=== PATIENT | female | born 1965 | race Caucasian/White ===

== ENCOUNTER → 2024-01-10 14:13 | Outpatient (REF) | payer OTHER, SELFPAY | LOC: RAD 14:13 | PROVIDERS: ATTENDING PHYSICIAN Family Medicine | DX: R10.9 Unspecified abdominal pain (principal) | CPT/HCPCS: 76700 ==

== ENCOUNTER 2024-01-10 21:28 | Inpatient (IN) | payer OTHER, SELFPAY ==
[2024-01-10] VITALS (7 sets, daily range): BP systolic 130–139; BP diastolic 72–86; BMI 19.3
--- NOTE | 2024-01-10 17:00 | ED.PDOC.TRB ---
ED Provider Triage
-
Patient seen by provider in Triage?: Seen in Triage
58 year old female with intermittent epigastric and RUQ pain. Was sent over by PMD from outpatient radiology. US shows gallstones with dilated CBD. Labs ordered. May require further work up. Declined meds for pain/nausea.
[2024-01-10 17:36] LABS: % Basophils 1.4 % (0-2); % Eosinophils 10.7 % (0-6); % Immature Granulocytes 0.1 % (0-0.5); % Lymphocytes 34.2 % (20.5-51.1); % Monocytes 6.4 % (1.7-9.3); % Neutrophils 47.2 % (42.2-75.2); Absolute Basophils 0.1 10^3/uL (0-0.2); Absolute Eosinophils 0.9 10^3/uL (0-0.7); Absolute Lymphocytes 2.7 10^3/uL (1.2-3.4); Absolute Monocytes 0.5 10^3/uL (0.1-0.6); Absolute Neutrophils 3.8 10^3/uL (1.4-6.5); Hematocrit 42.9 % (37.0-47.0); Hemoglobin 14.3 g/dL (12.0-16.0); Mean Corp Hgb Conc. 33.3 g/dL (33.0-37.0); Mean Corpuscular Hgb 32.1 pg (27.0-31.0); Mean Corpuscular Volume 96.4 fL (81.0-99.0); Mean Platelet Volume 9.9 fL (7.4-10.4); Nucleated Red Blood Cells % 0 %; Platelet Count 309 10^3/uL (130-400); Red Blood Cell Count 4.45 10^6/uL (4.20-5.40); Red Cell Dist. Width 12.3 % (11.5-14.5)
[2024-01-10 18:10] LABS: ALT (SGPT) 1315 U/L (0-35); AST (SGOT) 665 U/L (14-36); Albumin 3.1 g/dl (3.5-5.0); Alkaline Phosphatase 376 U/L (38-126); Blood Urea Nitrogen 16 mg/dl (7-17); Calcium 10.1 mg/dl (8.4-10.2); Carbon Dioxide 26 mmol/L (22-30); Chloride 105 mmol/L (98-107); Glucose 95 mg/dl (70-99); Lipase 192 U/L (23-300); Potassium 3.8 mmol/L (3.5-5.1); Sodium 138 mmol/L (135-145); Total Protein 7.5 g/dl (6.3-8.2); eGFR > 60.00
[2024-01-10] MEDS: NSS 1000 IV (19:05)
--- NOTE | 2024-01-10 19:40 | ED.GENMED ---
History of Present Illness
General
Chief Complaint: Abdominal Pain
Source: patient
Exam Limitations: none
Time Seen by Provider: 01/10/24 18:45
Nursing documentation reviewed up to this point in time: agreed with
History of Present Illness
History of Present Illness:
58-year-old female presenting to the emergency department today with concerns of right upper quadrant pain starting yesterday. Was found on an outpatient ultrasound to have stones in the common bile duct. Has elevated liver function test as well
as alk phos. Has had some nausea. Denies any chest pain shortness of breath or fevers. No jaundice.
Review of Systems
Review of Systems
Allergies reviewed?: Yes
All Other Systems: ROS reviewed and negative except as documented in HPI and ROS
Phy Exam
Physical Exam
Physical Exam:
GENERAL: Alert , in no apparent distress
EYE: pupils equal and reactive
NECK: Supple, no significant adenopathy.
ENT: o/p clr, mmm.
CARDIAC: Regular rate and rhythm .
LUNGS: Clear breath sounds bilaterally, no acute respiratory distress, no wheezes/rales/rhonchi
ABDOMEN: Soft, without focal tenderness, no r/g, no cvat
NEUROLOGICAL: Alert and oriented, no focal neuro deficits
SKIN: Warm and dry, skin intact.
MUSCULOSKELETAL: No edema, well perfused.
PSYCH: Normal and appropriate interaction.
Course
Orders/Labs/Results
Orders:
Orders
01/10/24 17:02
IV Insert/Care/Rem.- Treatment PRN
01/10/24 17:24
Complete Blood Count/With Diff Urgent
Comprehensive Metabolic Panel Urgent
Lipase Urgent
01/10/24 18:55
0.9% Sodium Chloride 1000 ml [Nss] 1,000 ml IV BOLUS
Abnormal Lab Results
01/10/24
17:24
MCH 32.1 H pg
(27.0-31.0)
Absolute Eos (auto) 0.9 H 10^3/uL
(0-0.7)
Eosinophils % 10.7 H %
(0-6)
AST 665 H* U/L
(14-36)
ALT 1315 H* U/L
(0-35)
Alkaline Phosphatase 376 H U/L
(38-126)
Albumin 3.1 L g/dl
(3.5-5.0)
01/10/24 17:24
01/10/24 17:24
Vital Signs
Initial and Last Documented VS:
Initial Vital Signs
Temp Pulse Resp BP Pulse Ox
98.3 F 106 20 134/84 96
01/10/24 16:58 01/10/24 16:58 01/10/24 16:58 01/10/24 16:58 01/10/24 16:58
Last Documented Vital Signs
Temp Pulse Resp BP Pulse Ox
98.1 F 73 20 130/86 96
01/10/24 19:09 01/10/24 19:09 01/10/24 19:09 01/10/24 19:09 01/10/24 19:09
MDM/Problems Addressed
MDM/Problems Addressed:
58-year-old female presenting to the emergency department today with concerns of right upper quadrant abdominal pain starting yesterday. Has had some degree of intermittent pain over the past few weeks. Upon arrival tachycardic but otherwise
improving without specific treatment here. Labs showing significant elevation of liver function test as well as alk phos. Case discussed with GI will be admitted for further treatment and monitoring.
*Critical Care Note
Total Time (30-74mins, 75-104mins- exclusive of procedures): Not Applicable
ED Attending Note
-
Portions of this chart may have been created with voice recognition software.� Occasional wrong word or��sound alike� substitutions may have occurred due to the inherent limitations of voice recognition software.
Discharge Plan
Departure
Patient Disposition: Admit
Date of Disposition: 01/10/24
Time of Disposition: 19:41
Admit to: Med/Surg
Admit to doctor: Alexis
Presentation/result/management discussed w/ accepting MD/DO: Hospitalist
Patient with high blood pressure during this ER visit?: No
Condition: Good
Covid-19: Not Applicable
Discharge Problem:
Choledocholithiasis
Prescriptions:
No Action
clotrimazole 10 mg Bishop
10 mg MUCOUS MEMBRANE .5X DAILY
Patient Comments:
01/10/24: filled 12/27/23, to take for 14 days, patient states she finishes on Wednesday
cetirizine [Zyrtec] 10 mg Tablet
10 mg PO HS
sertraline 100 mg Tablet
100 mg PO HS
Theragen Tablet
1 tab PO DAILY
trazodone 100 mg Tablet
100 mg PO HS
fluticasone propionate [Flonase] 50 mcg/actuation [place],Suspension
1 spray INTRANASAL DAILY
rosuvastatin 5 mg Tablet
5 mg PO DAILY
bupropion HCl 300 mg Tablet Extended Release 24 Hr
300 mg PO DAILY
magnesium glycinate 100 mg magnesium Capsule
400 mg PO HS
famotidine 20 mg Tablet
20 mg PO HS
Referrals:
Devorah Julien DO [Family Provider] -
Interventions
Interventions:
*Risk Screen - Suicide Last Done: 01/10/24 16:58
*General Assessment Last Done: 01/10/24 16:58
*Neglect/Abuse Screening Last Done: 01/10/24 16:58
Discharge Date and Time
Print Language: IRISH
--- NOTE | 2024-01-10 21:09 | HPS.HSE ---
Family Physician
-
Family Physician: Devorah Julien
Chief Complaint
-
Abd Pain
History of Present Illness
Patient is a 58y F with PMH significant for anxiety / depression and allergies who presents to ED complaining of abdominal pain. Patient states that she had her initial episode of epigastric abdominal pain on 12/02 in the evening. Pain was quite
severe at that time with radiation into the bilateral flanks. She had N/V x 1 with that episode. Her symptoms improved after 1+ hour. Patient states that she has had 3 additional episodes since that time. She is not certain whether they are all
related to food intake; however, today she ate eggs and richardson for breakfast (which is unusual for her) and her symptoms started about 2 hours later.
With this most recent episode, the patient spoke with her PCP and had an outpatient US done. This showed gallstones and dilated CBD suspicious for distal stone and patient was advised to present to the ED for further evaluation.
Patient states that she changed her diet in July of this year. She has been avoiding carbs, sugars, etc and has lost 30 lbs in that time. This is admittedly more weight than she was trying to lose.
Patient has been having various symptoms since October of this year. She initially had dry mouth and has been treated for presumed candidiasis twice. She is currently on a 10 day course of clotrimazole troches.
Patient was evaluated by her PCP and noted to have significant elevation in RF and CCP.
She states that she has since been seen by a Learning Analyst and additional evaluations have federico unremarkable.
She was also noted to have an IgA level that was undetectable.
Patient was maintained on Xolair for the past 6 years for treatment of IgE-mediated allergies.
She was taken off of this medication in July of this year.
Medical History
Past Medical History
Past Medical History: Reports Other
Additional Past Medical History:
Anxiety / Depression
IgE-Mediated Environmental Allergies
Chronic Sinusitis
Dyslipidemia
Past Surgical History: Reports Other
Additional Past Surgical History:
Sinus Surgery
Social History
Tobacco: Non-smoker
Alcohol: Occasional
Drug: None
Personal:
Living: With Family
Family History
Family History: Not pertinent
Allergies / Home Medications
Allergies reflects when Allergies were last updated in [facility].
Home Medications with original date entered in [facility]
Allergy/Medication List:
Allergies
Allergy/AdvReac Type Severity Reaction Status Date / Time
No Known Allergies Allergy Unverified 01/10/24 16:58
Home Medications
bupropion HCl 300 mg 24 hr tablet, extended release 300 mg PO DAILY 01/10/24
cetirizine 10 mg tablet (Zyrtec) 10 mg PO HS 01/10/24
clotrimazole 10 mg christiana 10 mg mucous membrane .5X DAILY 01/10/24
famotidine 20 mg tablet 20 mg PO HS 01/10/24
fluticasone propionate 50 mcg/actuation nasal spray,suspension 1 spray intranasal DAILY 01/10/24
magnesium glycinate 400 mg PO HS 01/10/24
rosuvastatin 5 mg tablet 5 mg PO DAILY 01/10/24
sertraline 100 mg tablet 100 mg PO HS 01/10/24
therapeutic multivitamin 1 tab PO DAILY 01/10/24
trazodone 100 mg tablet 100 mg PO HS 01/10/24
Review of Systems
-
History Source: Patient
A 12 point ROS was completed and negative except as noted: Yes
Constitutional: Reports Weight Loss and Fatigue; Denies Fever or Chills
EENT: Reports Other (Dry Mouth, Tongue coating.)
Respiratory: Denies Cough or Trouble Breathing
Cardiac: Denies Chest Pain or Palpitations
Abdomen/GI: Reports Abdominal Pain, Nausea and Diarrhea (yellow stool.); Denies Vomiting or Anorexia
: Reports Flank Pain and Other (Dark urine.); Denies Dysuria or Frequency
Musculoskeletal: Denies Joint Pain or Edema
Neurological: Denies Dizzy or Headache
Psych: Denies Depression or Anxiety
Physical Exam
Vital Signs
Vital Signs
Temp Pulse Resp BP Pulse Ox
98.1 F 68 18 134/80 97
01/10/24 19:09 01/10/24 21:00 01/10/24 21:00 01/10/24 21:00 01/10/24 21:00
Physical Exam
General: Other (58y F in no acute distress.)
HEENT: Other (Dry MM. Whitish coating on the tongue. No ulcers / lesions.)
Respiratory: Clear; No Wheezes, Rales or Rhonchi
Cardiac: S1/S2 and Regular Rhythm; No Murmur
GI: Soft, Non Distended, Normal Bowel Sounds and Other (Mild RUQ tenderness. No rebound / guarding.)
Musculoskeletal: No Clubbing, No Cyanosis and No Edema
Neuro: AO x 3
Laboratory Results
-
01/10/24 17:24
01/10/24 17:24
Laboratory Results
Total Bilirubin 1.0 mg/dl (0.2-1.3) 01/10/24 17:24
AST 665 U/L (14-36) H* 01/10/24 17:24
ALT 1315 U/L (0-35) H* 01/10/24 17:24
Alkaline Phosphatase 376 U/L (38-126) H 01/10/24 17:24
Lipase 192 U/L (23-300) 01/10/24 17:24
Impression/Plan
-
A/P: Patient is a 58y F with PMH significant for anxiety / depression and chronic sinusitis who presents to ED complaining of abdominal pain.
Abdominal Pain
Hepatitis
Cholelithiasis +/- Choledocholithiasis
- Admit for further evaluation and treatment.
- LFTs with elevated transaminases (ALT > AST) and alk phos. Normal bili.
- US done as an outpatient with multiple gallstones. No wall thickening / fluid. Dilated CBD suggestive of possible distal obstruction.
- Currently symptom free in the ED. 4 episodes of pain in the past month.
- NPO after midnight.
- IVF support, pain control / antiemetics if needed.
- GI evaluation for probable ERCP in the AM.
- Given other recent issues / complaints / lab abnormalities - will add testing for AHI as well.
Oral Candidiasis
- Will hold on further clotrimazole for now given LFT abnormalities.
- Follow for any new / worsening symptoms and consider alternate therapy if needed.
Anxiety / Depression
- Stable. Continue sertraline, trazodone, etc.
RF Positive
Weight Loss
- Patient with outpatient labs including positive RF, CCP and undetectable IgA.
- Work to include testing for autoimmune hepatitis as noted above.
- Follow-up with PCP / Rheum as an outpatient.
DVT Prophylaxis: SCDs
Code Status: Full
[2024-01-10] MEDS: LR 1000 IV (22:45)
[2024-01-10] MEDS: ZOLOFT 100 MG PO (22:46)
[2024-01-10] MEDS: DESYREL 100 MG PO (22:46)
[2024-01-10] MEDS: PEPCID 20 MG PO (22:46)
--- NOTE | 2024-01-10 22:50 | PTCARENOTE ---
Received patient from ED via stretcher. Patient ambulated from stretcher to bed independently. AAOx3, no current complaints of pain. Oriented patient to room and placed call malcolm within reach.
[2024-01-11 06:57] LABS: Hematocrit 36.7 % (37.0-47.0); Hemoglobin 12.5 g/dL (12.0-16.0); Mean Corp Hgb Conc. 34.1 g/dL (33.0-37.0); Mean Corpuscular Hgb 32.1 pg (27.0-31.0); Mean Corpuscular Volume 94.1 fL (81.0-99.0); Mean Platelet Volume 10.4 fL (7.4-10.4); Platelet Count 266 10^3/uL (130-400); Red Cell Dist. Width 12.5 % (11.5-14.5)
--- NOTE | 2024-01-11 07:30 | CON.GI ---
Addendum entered and electronically signed by Amaya Mi MD 01/11/24 08:59:
I saw and examined the patient.
The SHED WORKERS SUPERVISOR's note was reviewed and I agree with the note.
Comment: This is a very pleasant 58-year-old female with past medical history as listed below who presented with epigastric pain radiating to the back she has had intermittent episodes since November but worsening symptoms since this past weekend after
eating richardson and eggs. On admission she was noted to have gallstones and possible CBD stone with abnormal LFTs. She states her pain though has significantly improved today. No fevers or chills. She has had a 30 pound intentional weight loss and
for her daughter's wedding coming up in 2 weeks.
Assessment and plan cholelithiasis with possible choledocholithiasis and abnormal LFTs. Her pain has improved today she may have passed a stone will get an MRCP today and if she still has a retained stone then will schedule for ERCP and if she
passed a stone she will need cholecystectomy timing per surgery. Okay to start clear liquids after her MRCP and trend labs. will also get Acute viral hepatitis serologies.
Addendum entered and electronically signed by CYNDIE Gleason 01/11/24 08:25:
Pt also with hx recent candidiasis x2 and noted elevated RF and CCP with rheumatology evaluation with hx Xolair therapy for IGE mediated allergies stopped several months ago. GLO, AMA, ASMA added per hospitalist team.
Original Note:
Consultation
-
Date/Time Consultation Requested: 01/10/240
Date/Time Consultation Performed: 01/10/14 0730
Requesting Provider: Shashi Espinoza DO
Performing Provider: CYNDIE Manzano, Amaya Mi MD
Reason for Consultation: abdominal pain
Medical History
Chief Complaint / HPI
Chief Complaint: abdominal pain
History of Present Illness:
Pt is a 58yo presents with hx anxiety/depression, elevated cholesterol, allergies and prior sinus surgery with onset of recurrent episodes of abdominal pain with recent intentional wt loss prior to family wedding. Episodes started in November with
worst episode this weekend after eating richardson and eggs and the beach. Symptoms had some improvement but pt was concerned for recurrent process. On admission she is noted bili 1, AST 665, ALT 1315 and alk phos 376. US notable for cholelithiasis
with many stones in GB lumen, and moderate distention suspicious for distal CBD obstruction.
Pt admits to some vomiting with first episode and change in stool color with some diarrhea and constipation with yellow stools and dark urine. + wt loss 30 lb prior to admission. Pain was epigastric and between breast. Worse after eating better
with fasting. She denies dysphagia, GERD, or rectal bleeding. No prior EGD but hx colon with polyps 3 years ago.
Past Medical History
Past Medical History: Hypercholesterolemia, Psychiatric (anxiety/depression) and Other (IgE- mediated environmental allergies, chronic sinusitis, colon polyps)
Past Surgical History: Other (sinus surgery )
Social History
Tobacco: Non-Smoker
Alcohol: Occasional
Drug: None
Personal:
Living: With Family
Employment: Employed
Family History
Family History: Reviewed & Not Pertinent
Allergies / Home Medications
Allergy/AdvReac Type Severity Reaction Status Date / Time
No Known Allergies Allergy Unverified 01/10/24 16:58
�Medication �Instructions �Recorded
bupropion HCl 300 mg 24 hr tablet, 300 mg PO DAILY 01/10/24
extended release
cetirizine 10 mg tablet (Zyrtec) 10 mg PO HS 01/10/24
clotrimazole 10 mg christiana 10 mg mucous membrane .5X DAILY 01/10/24
famotidine 20 mg tablet 20 mg PO HS 01/10/24
fluticasone propionate 50 1 spray intranasal DAILY 01/10/24
mcg/actuation nasal
spray,suspension
magnesium glycinate 400 mg PO HS 01/10/24
rosuvastatin 5 mg tablet 5 mg PO DAILY 01/10/24
sertraline 100 mg tablet 100 mg PO HS 01/10/24
therapeutic multivitamin 1 tab PO DAILY 01/10/24
trazodone 100 mg tablet 100 mg PO HS 01/10/24
Review of Systems
-
History Source: Patient
Constitutional: Reports Weight Loss
EENT: Reports No Symptoms
Respiratory: Reports No Symptoms
Cardiac: Reports Chest Pain (with abdominal pain )
Abdomen/GI: Reports Abdominal Pain, Nausea, Vomiting, Diarrhea, Constipated and Other (change in stool color)
: Reports Dark Urine
Musculoskeletal: Reports No Symptoms
Skin: Reports No Symptoms
Neurological: Reports No Symptoms
Endocrine: Reports No Symptoms
Hematologic/Lymphatic: Reports No Symptoms
Vital Signs
Temp Pulse Resp BP Pulse Ox
97.7 F 63 18 139/72 94
01/10/24 22:48 01/10/24 22:48 01/10/24 22:48 01/10/24 22:48 01/10/24 23:00
Physical Exam
Exam
General: Well Developed, Well Nourished and No Apparent Distress
HEENT: Normocephalic and Anicteric
Respiratory: Clear
Cardiac: Regular Rhythm
GI: Soft, Non Tender and Non Distended
Musculoskeletal: No Clubbing and No Cyanosis
Skin: Warm and Dry
Neuro: Awake, Alert and AO x 3
Psych: Calm
Results
WBC 7.0 10^3/uL (4.8-10.8) 01/11/24 05:47
Hgb 12.5 g/dL (12.0-16.0) 01/11/24 05:47
Hct 36.7 % (37.0-47.0) L 01/11/24 05:47
MCV 94.1 fL (81.0-99.0) 01/11/24 05:47
Plt Count 266 10^3/uL (130-400) 01/11/24 05:47
Absolute Neuts (auto) 3.8 10^3/uL (1.4-6.5) 01/10/24 17:24
Sodium 138 mmol/L (135-145) 01/10/24 17:24
Potassium 3.8 mmol/L (3.5-5.1) 01/10/24 17:24
Chloride 105 mmol/L (98-107) 01/10/24 17:24
Carbon Dioxide 26 mmol/L (22-30) 01/10/24:24
BUN 16 mg/dl (7-17) 01/10/24 17:24
Creatinine 0.8 mg/dL (0.6-1.0) 01/10/24:
Calcium 10.1 mg/dl (8.4-10.2) 01/10/24:24
Total Bilirubin 1.0 mg/dl (0.2-1.3) 01/10/24:24
AST 665 U/L (14-36) H* 01/10/24 17:24
ALT 1315 U/L (0-35) H* 01/10/24 17:24
Alkaline Phosphatase 376 U/L (38-126) H 01/10/24:24
Lipase 192 U/L (23-300) 01/10/24 17:24
Diagnostic Image Results:
1. CHOLELITHIASIS with many small layering gallstones in the gallbladder lumen.
2. Moderate distention of the common bile duct (9.7 mm) and mild intrahepatic biliary dilatation suspicious for a distal common bile duct obstruction.
Prior GI Procedures:
EGD: none
Colonoscopy: 3 years ago polyps, [facility]
Assessment / Plan
-
Pt is a 58yo presents with hx anxiety/depression, elevated cholesterol, allergies and prior sinus surgery with onset of recurrent episodes of abdominal pain with recent intentional wt loss prior to family wedding. Episodes started in November with
worst episode this weekend after eating richardson and eggs and the beach. Symptoms had some improvement but pt was concerned for recurrent process. On admission she is noted bili 1, AST 665, ALT 1315 and alk phos 376. US notable for cholelithiasis
with many stones in GB lumen, and moderate distention suspicious for distal CBD obstruction.
-recurrent episodes of epigastric abdominal pain
-elevated LFT's
-US with cholelithiasis and suspicion for CBD obstruction
-recent wt loss
other med problems:
-anxiety/depression
-hypercholesterolemia
-seasonal allergies
-sinus surgery
PLAN:
etiology of symptoms with concern for CBD stone in setting of recent wt loss, biliary colic, vs other
no fever or WBC's elevation with normal, lipase normal
improved pain today
US as noted
some improved LFT's cont to trend
plan for MRI with MRCP - if + stone then proceed with ERCP
t/c eventual surgical evaluation
will follow
-
-
Thank you for consultation and allowing me to participate in the patient's care. Please call the operations and maintenance manager GI physician during the after hours with any questions or concerns.
[2024-01-11 07:44] VITALS: BP 134/70
[2024-01-11 07:46] LABS: AST (SGOT) 310 U/L (14-36); Albumin 3.8 g/dl (3.5-5.0); Alkaline Phosphatase 278 U/L (38-126); Blood Urea Nitrogen 12 mg/dl (7-17); Calcium 9.5 mg/dl (8.4-10.2); Carbon Dioxide 24 mmol/L (22-30); Chloride 108 mmol/L (98-107); Direct Bilirubin 0.2 mg/dl (0.0-0.4); Estimated Creatinine Clearance 82 ml/min; Glucose 77 mg/dl (70-99); Potassium 3.8 mmol/L (3.5-5.1); Sodium 139 mmol/L (135-145); Total Bilirubin 0.7 mg/dl (0.2-1.3); Total Protein 6.2 g/dl (6.3-8.2); eGFR > 60.00
[2024-01-11 07:52] LABS: ALT (SGPT) 935 U/L (0-35)
[2024-01-11] MEDS: LR 1000 IV ×2 (08:03→18:04)
[2024-01-11] MEDS: WELLBUTRIN XL (24 hour extended release) 300 MG PO (08:03)
--- NOTE | 2024-01-11 12:29 | W.PN.UPDATE ---
Update Note
Progress Note Update
Pt updated on MRI plan for ERCP. risk/benefits reviewed. Will need surgery eval for carline.
[2024-01-11 13:05] VITALS: BMI 19.3
[2024-01-11 15:20] VITALS: BP 121/79
--- NOTE | 2024-01-11 16:43 | CON.GS ---
Medical History
-
Chief Complaint: Epigastric and RUQ abdominal pain
History of Present Illness:
Patient is a 58 yo F with a PMH of depression/anxiety, HLD, and removal of nasal polyps who presents with 24 hours of abdominal pain. Current episode began yesterday morning after eating a richardson egg and cheese. She describes severe epigastric and
RUQ abdominal pain radiating around to her bilateral flanks. Associated dark urine and pale her stools. Subjective fevers and chills. Associated nausea. She reports she has had 4 episodes since early November. She has no recall of these were
associated with oral intake. Prior episodes were less severe and lasted 1 to 2 hours before self resolving. Currently her pain is resolved.
Past Medical History
Past Medical History: Hypercholesterolemia and Psychiatric (Depression/anxiety)
Past Surgical History: Other (Sinusitis)
Social History
Tobacco: Non-Smoker
Alcohol: Occasional
Drug: None
Personal:
Living: With Family
Family History
Family History: Reviewed & Noncontributory
Allergies / Home Medications
Allergy/AdvReac Type Severity Reaction Status Date / Time
No Known Allergies Allergy Unverified 01/10/24 16:58
�Medication �Instructions �Recorded �Confirmed �Type
bupropion HCl 300 mg 24 hr tablet, 300 mg PO DAILY 01/10/24 01/10/24 History
extended release
cetirizine 10 mg tablet (Zyrtec) 10 mg PO HS 01/10/24 01/10/24 History
clotrimazole 10 mg christiana 10 mg mucous membrane .5X DAILY 01/10/24 01/10/24 History
famotidine 20 mg tablet 20 mg PO HS 01/10/24 01/10/24 History
fluticasone propionate 50 1 spray intranasal DAILY 01/10/24 01/10/24 History
mcg/actuation nasal
spray,suspension
magnesium glycinate 400 mg PO HS 01/10/24 01/10/24 History
rosuvastatin 5 mg tablet 5 mg PO DAILY 01/10/24 01/10/24 History
sertraline 100 mg tablet 100 mg PO HS 01/10/24 01/10/24 History
therapeutic multivitamin 1 tab PO DAILY 01/10/24 01/10/24 History
trazodone 100 mg tablet 100 mg PO HS 01/10/24 01/10/24 History
Review of Systems
-
A 10 point review of systems was completed, and was negative except as per HPI.
Physical Exam
Vital Signs
Temp Pulse Resp BP Pulse Ox
98.0 F 77 18 121/79 95
01/11/24 15:20 01/11/24 15:20 01/11/24 15:20 01/11/24 15:20 01/11/24 15:20
01/10/24 01/11/24 01/12/24
06:59 06:59 06:59
Actual Weight 59.194 kg
Body Mass Index (BMI) 19.3
Lab Results
01/11/24 05:47
01/11/24 05:47
WBC 7.0 10^3/uL (4.8-10.8) 01/11/24 05:47
Hgb 12.5 g/dL (12.0-16.0) 01/11/24 05:47
Hct 36.7 % (37.0-47.0) L 01/11/24 05:47
Plt Count 266 10^3/uL (130-400) 01/11/24 05:47
Abs Immat Gran (auto) 0.0 10^3/uL (0-0.05) 01/10/24 17:24
Neutrophils % 47.2 % (42.2-75.2) 01/10/24 17:24
Physical Exam
General: Well Developed and Well Nourished
Respiratory: Non Labored Respirations
Cardiac: Regular Rhythm
GI: Soft, Non Tender (Negative Townsend's sign), Non Distended and Other (Non-peritoneal)
Musculoskeletal: No Edema
Skin: Warm and Dry
Neuro: Nonfocal/Grossly Intact
Data Reviewed
-
Ultrasound: Image Personally Visualized and interpreted and Report Reviewed by me
MRI: Image Personally Visualized and interpreted and Report Reviewed by me
Labs: Labs Reviewed by me
Assessment / Plan
-
Patient is a 58 yo F p/w choledocholithiasis
Natural history and pathophysiology of biliary and stone disease has been previously discussed. Anatomy was reviewed. Workup thus far was reviewed. Role of cholecystectomy in preventing future episodes of cholecystitis or choledocholithiasis was
discussed. GI consult noted. Tentative plan for an ERCP today. Timing of cholecystectomy TBD based on patient's recovery. All all questions answered.
-- GI consult noted, ERCP today
-- Timing of cholecystectomy TBD
--- NOTE | 2024-01-11 18:26 | W.PN.HOSP.TC ---
Today's Communication/Plan
-
See plan
Assessment / Plan
Assessment / Plan
Impression:
Patient is a 58y F with PMH significant for anxiety / depression and chronic sinusitis who presents to ED complaining of abdominal pain.
Choledocholithiasis.
Oral candidiasis
Anxiety/depression.
RF positive/weight loss.
Plan:
Choledocholithiasis confirmed with MRCP.
ERCP today.
Surgery consult with consideration of cholecystectomy, timing to be determined.
Oral Candidiasis
- Will hold on further clotrimazole for now given LFT abnormalities.
- Follow for any new / worsening symptoms and consider alternate therapy if needed.
Anxiety / Depression
- Stable. Continue sertraline, trazodone, etc.
RF Positive
Weight Loss
- Patient with outpatient labs including positive RF, CCP and undetectable IgA.
- Work to include testing for autoimmune hepatitis as noted above.
- Follow-up with PCP / Rheum as an outpatient.
DVT Prophylaxis: SCDs
Anticipated Discharge: 24 - 48 hours
Subjective/Interval History
-
Date of Service: January 11, 2024
Objective Data
-
Labs:
Laboratory Results
01/11/24
05:47
WBC 7.0
Hgb 12.5
Hct 36.7 L
Plt Count 266
Sodium 139
Potassium 3.8
Chloride 108 H
Carbon Dioxide 24
BUN 12
Creatinine 0.7
Glucose 77
Calcium 9.5
Total Bilirubin 0.7
AST 310 H
ALT 935 H*
Alkaline Phosphatase 278 H
Vital Signs:
Vital Signs
Temp Pulse Resp BP Pulse Ox
98.0 F 77 18 121/79 95
01/11/24 15:20 01/11/24 15:20 01/11/24 15:20 01/11/24 15:20 01/11/24 15:20
Physical Exam
-
General: Well Developed and No Apparent Distress
HEENT: Normocephalic, Atraumatic and Moist Mucous Membranes
Respiratory: Clear to Auscultation
Cardiac: Regular Rhythm and S1/S2; Negative Murmur, Rub or Gallop
GI: Soft, Nontender, Nondistended and Normal Bowel Sounds; Negative Organomegaly
Rectal: Deferred by Provider
Musculoskeletal: No Clubbing, No Cyanosis and No Edema
Skin: Negative Rash
Neuro: Nonfocal/Grossly Intact
--- NOTE | 2024-01-11 19:31 | PTCARENOTE ---
Addendum entered by Ana Campos RN 01/11/24 19:32:
sent at 1840
Original Note:
Pt sent to ERCP on stretcher, report given to GI Lab, pt awake,alert and oriented. Pt sent with chart, at bedside, updated on plan of care,
[2024-01-11 20:31] VITALS: BP 136/80
--- NOTE | 2024-01-11 20:34 | PTCARENOTE ---
Patient arrived from procedure, with 2/10 epigastric pain. Patient visiting with her , tolerating clear liquids. Abd remains flat, non-distended with normal bowel sounds.
[2024-01-11 21:28] VITALS: BP 115/53
[2024-01-11] MEDS: PEPCID 20 MG PO (21:55)
[2024-01-11] MEDS: DESYREL 100 MG PO (21:56)
[2024-01-11] MEDS: ZOLOFT 100 MG PO (21:56)
[2024-01-11] MEDS: ULTRAM 25 MG PO (22:25)
[2024-01-11 23:48] VITALS: BP 109/60
[2024-01-12] VITALS (9 sets, daily range): BP systolic 108–139; BP diastolic 59–76
[2024-01-12] MEDS: LR 1000 IV (05:31)
[2024-01-12] MEDS: WELLBUTRIN XL (24 hour extended release) 300 MG PO (08:32)
[2024-01-12 08:59] LABS: Hematocrit 41.6 % (37.0-47.0); Hemoglobin 13.7 g/dL (12.0-16.0); Mean Corp Hgb Conc. 32.9 g/dL (33.0-37.0); Mean Corpuscular Hgb 31.8 pg (27.0-31.0); Mean Corpuscular Volume 96.5 fL (81.0-99.0); Mean Platelet Volume 10.5 fL (7.4-10.4); Platelet Count 334 10^3/uL (130-400); Red Blood Cell Count 4.31 10^6/uL (4.20-5.40); Red Cell Dist. Width 12.2 % (11.5-14.5); White Blood Cell Count 11.4 10^3/uL (4.8-10.8)
--- NOTE | 2024-01-12 10:15 | W.PN.GI.CBS2 ---
Addendum entered and electronically signed by Amaya Mi MD 01/12/24 12:16:
I saw and examined the patient.
The S[employer] SPECIALIST's note was reviewed and I agree with the note.
Comment: Status post ERCP yesterday with biliary and pancreatic sphincterotomy, stone extraction and PD stent placement. LFTs are trending down and patient's pain has resolved. She is scheduled tentatively for cholecystectomy today with Dr. Ferrari.
Patient to get KUB in 2 weeks to follow-up on the PD stent and if not passed will need EGD with removal with Dr. Garay. will also need repeat LFTs in 1 to 2 weeks after DC. Will sign off and will be available as needed.
Original Note:
Today's Communication / Plan
-
MRI confirmed choledocholithiasis and pt proceeded for ERCP 01/10 with stone removal biliary and pancreatic sphincterotomy and stent placement
AM labs with mild leukocytosis , LFT's pending
pt feeling well no abdominal pain this am
NPO pending surgical plan for timing for carline-- ok per GI for diet when able
will need X ray 2 weeks to confirm passage of stent
slip given to patient and added to discharged
Assessment / Plan
-
Pt is a 58yo presents with hx anxiety/depression, elevated cholesterol, allergies and prior sinus surgery with onset of recurrent episodes of abdominal pain with recent intentional wt loss prior to family wedding. Episodes started in November with
worst episode this weekend after eating [place] and eggs and the beach. Symptoms had some improvement but pt was concerned for recurrent process. On admission she is noted bili 1, AST 665, ALT 1315 and alk phos 376. US notable for cholelithiasis
with many stones in GB lumen, and moderate distention suspicious for distal CBD obstruction.
01/10 MRI
1. EXTENSIVE CHOLEDOCHOLITHIASIS in the common bile duct causing biliary obstruction.
2. EXTENSIVE CHOLELITHIASIS in the gallbladder lumen.
3. Mild hepatomegaly.
01/10 ERCP - A filling defects consistent with stones were seen
on the cholangiogram.
- The common bile duct was mildly dilated.
- Choledocholithiases were found. Complete removal was
accomplished by biliary sphincterotomy and balloon
extraction.
- A pancreatic sphincterotomy was performed.
- One plastic stent was placed into the ventral
pancreatic duct.
- A biliary sphincterotomy was performed.
- The biliary tree was swept.
-choledocholithiasis
-cholelithiasis
-elevated LFT's
-mild leukocytosis
-recent wt loss
other med problems:
-anxiety/depression
-hypercholesterolemia
-seasonal allergies
-sinus surgery
PLAN:
MRI confirmed choledocholithiasis and pt proceeded for ERCP 01/10 with stone removal biliary and pancreatic sphincterotomy and stent placement
AM labs with mild leukocytosis , LFT's pending
pt feeling well no abdominal pain this am
NPO pending surgical plan for timing for carline-- ok per GI for diet when able
will need X ray 2 weeks to confirm passage of stent
slip given to patient and added to discharged
s
Subjective
Subjective
Date of Service: January 12, 2024
pt feels well, no abdominal pain, NPO pending surgical plan
Objective
Data Reviewed
Laboratory Data:
Laboratory Results
01/12/24 08:03
Laboratory Results
Total Bilirubin 0.7 mg/dl (0.2-1.3) 01/11/24 05:47
AST 310 U/L (14-36) H 01/11/24 05:47
ALT 935 U/L (0-35) H* 01/11/24 05:47
Alkaline Phosphatase 278 U/L (38-126) H 01/11/24 05:47
Lipase 192 U/L (23-300) 01/10/24 17:24
Vital Signs and I&O:
Vital Signs
Temp Pulse Resp BP Pulse Ox
98 F 77 18 120/69 98
01/12/24 07:50 01/12/24 07:50 01/12/24 07:50 01/12/24 07:50 01/12/24 08:30
I&O
01/11/24 01/12/24 01/13/24
06:59 06:59 06:59
Intake Total 1680 / 1680
Balance 1680 / 1680
Physical Exam
Physical Exam
HEENT: Anicteric and Moist mucous membranes
Cardiology: Normal Sinus Rhythm
Pulmonary: Clear
GI: Soft, Non Distended and Non Tender
Extremities: No Edema
Neuro: Non Focal
[2024-01-12 10:38] LABS: AST (SGOT) 151 U/L (14-36); Albumin 4.5 g/dl (3.5-5.0); Alkaline Phosphatase 295 U/L (38-126); Blood Urea Nitrogen 11 mg/dl (7-17); Carbon Dioxide 26 mmol/L (22-30); Chloride 103 mmol/L (98-107); Estimated Creatinine Clearance 82 ml/min; Glucose 90 mg/dl (70-99); Potassium 3.5 mmol/L (3.5-5.1); Sodium 138 mmol/L (135-145); Total Bilirubin 0.7 mg/dl (0.2-1.3); Total Protein 7.2 g/dl (6.3-8.2); eGFR > 60.00
[2024-01-12 11:14] LABS: ALT (SGPT) 714 U/L (0-35)
--- NOTE | 2024-01-12 12:26 | W.SUR.PREOP ---
Pre-Operative Surgical Note
-
I have examined this patient prior to the performance of the scheduled procedure.
The patient's condition is unchanged from the time of the current History and
Physical and the patient is able to undergo the scheduled procedure.
Risks benefits complications and alternatives were discussed in detail including but not limited to pain, bleeding, infection, conversion to open, injury to intra-abdominal structures including bile ducts, need for further procedures and the pt
freely sifgned the consent and agreed to proceed.
--- NOTE | 2024-01-12 13:29 | OR.RPT ---
Operative Report
Operative Report
Primary Surgeon: Vega
Assisting: Justin ALVARADO
Pre-op Diagnosis: Choledocholithiasis
Post-op Diagnosis: Same
Procedure Performed: Laparoscopic cholecystectomy
Anesthesia Type: GETA
Specimen / Cultures: Gallbladder
Estimated Blood Loss: 15cc
Complications: None immediate
Operative Findings: Elongated contracted gallbladder with mildly thickened wall and mild surrounding fibrosis
Date of Surgery: 01/12/24
Indications: This 58F developed right upper quadrant/epigastric pain and on workup was found to have cholelithiasis and choledocholithiasis. She underwent successful ERCP. Laparoscopic cholecystectomy was elected.
Description of procedure: The patient was placed on the operating table in the supine position. General anesthesia was induced. A time-out was completed verifying correct patient, procedure, site, positioning, and special equipment prior to
beginning this procedure. An orogastric tube was placed. The abdomen was prepped and draped in the usual sterile fashion. A stab incision was made in left upper quadrant and the Veress needle was inserted. Proper position was confirmed by aspiration
and saline meniscus test. The abdomen was insufflated with carbon dioxide to a pressure of 15 mmHg. The patient tolerated insufflation well.
A 5mm optical trocar was then inserted at the umbilicus. The laparoscope was inserted and the abdomen inspected. No injuries from initial trocar placement or Veress needle insertion were noted. Additional trocars were then inserted in the following
locations: a 12-mm trocar in the right epigastrium and two 5-mm trocars along the right costal margin. The abdomen was inspected and no abnormalities were found. The table was placed in the reverse Trendelenburg position with the right side up. The
dome of the gallbladder was grasped with an atraumatic grasper and retracted over the dome of the liver. The infundibulum was also grasped with an atraumatic grasper and retracted toward the right lower quadrant. This maneuver exposed Calot�s
triangle. The peritoneum overlying the gallbladder infundibulum was then incised and the cystic duct and cystic artery identified and circumferentially dissected so that a clear view of the liver was achieved through a window between the cystic duct
an cystic artery. At this time, the only two structures going into the gallbladder were the cystic artery and cystic duct.
The cystic duct and cystic artery were then doubly clipped and divided close to the gallbladder. The gallbladder was then dissected from its peritoneal attachments by electrocautery. Hemostasis was assured and the gallbladder and contained stones
were removed using an endoscopic retrieval bag placed through the subxiphoid port. The gallbladder was passed off the table as a specimen. The gallbladder fossa was oozing, after several minutes of cautery and irrigation hemostasis was achieved. The
area was copiously irrigated with saline and hemostasis was assured. There was no evidence of bleeding from the gallbladder fossa or cystic artery or leakage of the bile from the cystic duct stump. The subxiphoid trocar site was closed at the
fascial level laparoscopically with 2-0 PDS. Secondary trocars were removed under direct vision and noted to be hemostatic. The laparoscope was withdrawn and the umbilical trocar removed. The abdomen was allowed to collapse. The skin was closed with
subcuticular sutures of 4-0 monocryl and topical skin adhesive. The orogastric tube was removed.
The patient tolerated the procedure well and was taken to the postanesthesia care unit in stable condition.
--- NOTE | 2024-01-12 15:08 | PTCARENOTE ---
Pt returned from OR/[facility] via bed; accompanied by PACU staff. Pt drowsy but arousable; alert; oriented x3 when awake; MOSQUEDA well. VSS. On room air- pulse ox 95%, no SOB; lungs clear. Abd soft, sl rounded, non-tender, BS (*+). No c/o abd
discomfort/nausea. To start regular diet. pt DTV post-op; instructed to nohelia for assistance to BR. Abd sites x4 with dermabond HAVEN; D/IU; no edema /bruising/drainage noted noted. Lt/mid abd stab site HAVEN; draining small amts serosanguinous
drainage; DSG applied over site. Ice rubén intact over abd sites. Knee high SCDs in place. IVF's capped. Resting comfortably at present. Will continue to monitor.
--- NOTE | 2024-01-12 15:41 | W.DS.TRANS ---
DC Summary - Political Science Instructor
-
Discharge Instructions:
Discharge Diagnosis/Procedures Choledocholithiasis
Status post ERCP
Status post laparoscopy cholecystectomy
Others Tests will need X ray in week weeks about 01/25 to
confirm pancreatic duct stent has passed. X ray
slip given to patient
Instructions: Cholecystectomy (DC)
Stand-Alone Forms:
Changes to Home Medications: No
Discharge Medications:
DC Medications w/original date entered in [employer]
bupropion HCl 300 mg 24 hr tablet, extended release 300 mg PO DAILY 01/10/24
cetirizine 10 mg tablet (Zyrtec) 10 mg PO HS 01/10/24
clotrimazole 10 mg christiana 10 mg mucous membrane .5X DAILY 01/10/24
famotidine 20 mg tablet 20 mg PO HS 01/10/24
fluticasone propionate 50 mcg/actuation nasal spray,suspension 1 spray intranasal DAILY 01/10/24
magnesium glycinate 400 mg PO HS 01/10/24
rosuvastatin 5 mg tablet 5 mg PO DAILY 01/10/24
sertraline 100 mg tablet 100 mg PO HS 01/10/24
therapeutic multivitamin 1 tab PO DAILY 01/10/24
trazodone 100 mg tablet 100 mg PO HS 01/10/24
oxycodone 5 mg tablet 5 - 10 mg (1 - 2 x 5 mg) PO Q4HPRN PRN moderate to severe pain #15 tabs 01/12/24
Home Medication Changes
Pending Results: No
--- NOTE | 2024-01-12 17:33 | PTCARENOTE ---
Pt marii regular diet without abd discomfort; pt for DC home.
[2024-01-13 01:07] LABS: F-Actin Antibody IgG 10 Units (0-19); Mitochondrial M2 Ab, IgG 10.9 Units (0.0-24.9)
[2024-01-13 01:39] LABS: ANA, IgG Reflex to HEp-2 None Detected (None Detected)
[2024-01-13 18:36] LABS: Hepatitis B Surface Antigen Negative (Negative)
[2024-01-13 18:42] LABS: Hepatitis A IgM Antibody Negative (Negative); Hepatitis B Core Ab, IgM Negative (Negative)
[2024-01-13 18:54] LABS: Hepatitis B Surface Antibody Negative; Hepatitis C Antibody Negative (Negative)
== END 2024-01-12 20:14 | disposition home or self-care (01) | DRG 418 ==
LOC: 4 EAST ACU 21:28
PROVIDERS: Internal Medicine Gastroenterology; Nurse Practitioner Adult Health; Physician Assistant; Surgery; ADMITTING PHYSICIAN Hospitalist; ATTENDING PHYSICIAN Internal Medicine; CONSULT PHYSICIAN Internal Medicine Gastroenterology; CONSULT PHYSICIAN Surgery; EMERGENCY PHYSICIAN Student in an Organized Health Care Education/Training Program; FAMILY PHYSICIAN Family Medicine
PROC: 0FC98ZZ Extirpation of Matter from Common Bile Duct, Via Natural or Artificial Opening Endoscopic (ICD-10-PCS; 2024-01-11)
PROC: 0F7D8DZ Dilation of Pancreatic Duct with Intraluminal Device, Via Natural or Artificial Opening Endoscopic (ICD-10-PCS; 2024-01-11)
PROC: 0FT44ZZ Resection of Gallbladder, Percutaneous Endoscopic Approach (ICD-10-PCS; 2024-01-12)
DX: K80.70 Calculus of gallbladder and bile duct without cholecystitis without obstruction (principal); B37.0 Candidal stomatitis; Z68.1 Body mass index [BMI] 19.9 or less, adult; K75.9 Inflammatory liver disease, unspecified; F32.A Depression, unspecified; R63.4 Abnormal weight loss; K83.8 Other specified diseases of biliary tract; F41.9 Anxiety disorder, unspecified; E78.00 Pure hypercholesterolemia, unspecified; J30.2 Other seasonal allergic rhinitis; J32.9 Chronic sinusitis, unspecified; K59.00 Constipation, unspecified; R19.7 Diarrhea, unspecified; R74.8 Abnormal levels of other serum enzymes; R79.89 Other specified abnormal findings of blood chemistry; Z79.899 Other long term (current) drug therapy; Z86.010 Personal history of colon polyps; Z87.09 Personal history of other diseases of the respiratory system
CPT/HCPCS: 88304; 74183; 74330; 76000; 80053; 82248; 83690; 85025; 85027; 86015; 86038; 86381; 86705; 86706; 86709; 86803; 87340; 96360; 99285; A9575; C1769; C2617

== ENCOUNTER → 2024-01-26 10:41 | Outpatient (REF) | payer OTHER, SELFPAY | LOC: RAD 10:41 | PROVIDERS: ATTENDING PHYSICIAN Internal Medicine Gastroenterology; FAMILY PHYSICIAN Family Medicine | DX: Z98.890 Other specified postprocedural states (principal); K80.50 Calculus of bile duct without cholangitis or cholecystitis without obstruction | CPT/HCPCS: 74018 ==

== ENCOUNTER → 2024-06-07 10:34 | Outpatient (REF) | payer OTHER, SELFPAY | LOC: RAD 10:34 | PROVIDERS: ATTENDING PHYSICIAN Family Medicine | DX: R05.9 Cough, unspecified (principal) | CPT/HCPCS: 71046 ==

== ENCOUNTER 2024-10-09 08:58 | Emergency (ER) | payer OTHER, SELFPAY ==
[2024-10-09 09:02] VITALS: BP 140/98
--- NOTE | 2024-10-09 10:09 | ED.GENMED ---
History of Present Illness
General
Chief Complaint: Ear Problem
Source: patient
Exam Limitations: none
Time Seen by Provider: 10/09/24 09:56
Nursing documentation reviewed up to this point in time: agreed with
History of Present Illness
History of Present Illness:
58 yr old female presents to the ER for evaluation. Pt reports she has a past medical history of immunoglobulin deficiency rheumatoid arthritis and is currently being worked up for Eric's thyroiditis. She reports she started October 01 with left
ear pain and fullness and was placed on antibiotics(amox ) and steroids by her family doctor. She continues to be on antibiotics. She reports yesterday she felt very tired and has had a lot of head pressure and feels like she is almost
underwater. She continues to have left ear pain. This morning she called her family doctor because she woke up with redness in both eyes left greater than right and because of feeling tired and persistent symptoms was sent to the ER for evaluation
by family doctor. In addition she does report she had a nosebleed this morning which is uncommon for her.
Review of Systems
Review of Systems
Allergies reviewed?: Yes
All Other Systems: ROS reviewed and negative except as documented in HPI and ROS
Constitutional: Reports fatigue; Denies fever
EENT: Reports other (left ear pain ,decreased hearing ,red eyes and nose bleed this am )
Respiratory: Reports no symptoms; Denies cough
Cardiac: Reports no symptoms
ABD/GI: Reports no symptoms
: Reports no symptoms
Musculoskeletal: Reports no symptoms
Skin: Reports no symptoms
Neurological: Reports no symptoms
Psychiatric: Reports no symptoms
Phy Exam
General Physical Exam
General Presentation: no apparent distress
General age: appears stated age
General Skin: warm and dry
General Habitus: normal
General Mental: alert
General Hydration: appears well hydrated
ENT Exam
ENT Exam: EOMI, neck supple, pharyngeal erythema and other (Right ear right TM is dull left TM appears red and infected; non tender over mastoid )
Eye Exam
Eye Exam: PERRL, EOMI and other (bilateral injection to conjunctiva with left greater than right)
Eye Exam General: PERRL: bilateral and EOM intact: bilateral
Pupil Exam: Bilateral: round and reactive
Cardiovascular Exam
Cardiovascular Exam: regular rate/rhythm, no murmur and normal peripheral pulses
Pulmonary Exam
Pulmonary Exam: lungs clear and no respiratory distress
Neurological Exam
Neurological Exam: alert and oriented x3
Musculoskeletal Exam
Musculoskeletal Exam: full ROM
Skin Exam
Skin Exam: normal color and warm/dry
Psychiatric Exam
Psychiatric Exam: normal mood/affect
Course
Orders/Labs/Results
Orders:
Orders
10/09/24 09:[address] [CT Head W/o Iv Contrast] Urgent
Comment:
Reason For Exam: headache
10/09/24 10:40
COVID-19 Antigen Urgent
Source: Nasal Swab
Complete Blood Count/With Diff Urgent
Comprehensive Metabolic Panel Urgent
Influenza A+B Rapid Molecular Urgent
DEBORAH Source: Nasal Swab
Specimen Description:
10/09/24 12:22
Cefdinir [Omnicef] 300 mg PO NOW STA
Abnormal Lab Results
10/09/24
10:40
WBC 16.9 H 10^3/uL
(4.8-10.8)
MCH 32.1 H pg
(27.0-31.0)
Abs Immat Gran (auto) 0.2 H 10^3/uL
(0-0.05)
Absolute Neuts (auto) 12.5 H 10^3/uL
(1.4-6.5)
Absolute Monos (auto) 1.0 H 10^3/uL
(0.1-0.6)
Immature Gran % 1.2 H %
(0-0.5)
Lymphocytes % 18.0 L %
(20.5-51.1)
BUN 25 H mg/dl
(7-17)
Glucose 107 H mg/dl
(70-99)
10/09/24 10:40
10/09/24 10:40
Vital Signs
Initial and Last Documented VS:
Initial Vital Signs
Temp Pulse Resp BP Pulse Ox
98.1 F 98 16 140/98 97
10/09/24 09:02 10/09/24 09:02 10/09/24 09:02 10/09/24 09:02 10/09/24 09:02
Last Documented Vital Signs
Temp Pulse Resp BP Pulse Ox
98.1 F 98 18 140/98 97
10/09/24 09:02 10/09/24 09:02 10/09/24 11:15 10/09/24 09:02 10/09/24 09:02
Regulatory Compliance Coordinator consulted with Physician
Regulatory Compliance Coordinator consulted with physician?: Yes
Name of Physician Consulted: Paul
MDM/Problems Addressed
MDM/Problems Addressed:
As documented patient is a 58-year-old female with history of immune deficiency send for evaluation. She has been treated by family doctor for left ear discomfort here decreased hearing feels like she is underwater since October 01. She is on
amoxicillin still and steroids however this morning woke up with bilateral conjunctivitis had a brief resolved nosebleed and does not feel well. She is very tired. She presents to the awake alert she denies any fevers and is afebrile she is in no
acute distress and nontoxic no evidence of meningismus. Her white count is elevated 16.9 but she is on steroids. Patient had a CAT scan which does not show any concerning findings for acute mastoiditis. This was reviewed by ENT Dr. Epps who did
review the CAT scan as well. It was recommended by ENT to either change her antibiotics versus admission. I did speak with this patient would like to try oral antibiotics with close follow-up. I did review with patient however to return if any
worsening of symptoms. Give first dose of cefdinir
*Critical Care Note
Total Time (30-74mins, 75-104mins- exclusive of procedures): Not Applicable
ED Attending Note
-
Portions of this chart may have been created with voice recognition software.� Occasional wrong word or��sound alike� substitutions may have occurred due to the inherent limitations of voice recognition software.
Discharge Plan
Departure
Patient Disposition: Home (Routine Discharge)
Date of Disposition: 10/09/24
Time of Disposition: 12:22
Patient with high blood pressure during this ER visit?: Yes
Condition: Fair
Covid-19: Not Applicable
Discharge Problem:
Acute otitis media
Instructions: Ear infection - ED discharge instructions, BLOOD PRESSURE
Prescriptions:
New
cefdinir 300 mg capsule
300 mg PO BID Qty: 20 0RF
No Action
clotrimazole 10 mg Bishop
10 mg MUCOUS MEMBRANE .5X DAILY
Patient Comments:
01/10/24: filled 12/27/23, to take for 14 days, patient states she finishes on Wednesday
cetirizine [Zyrtec] 10 mg Tablet
10 mg PO HS
sertraline 100 mg Tablet
100 mg PO HS
therapeutic multivitamin Tablet
1 tab PO DAILY
trazodone 100 mg Tablet
100 mg PO HS
fluticasone propionate 50 mcg/actuation [place],Suspension
1 spray INTRANASAL DAILY
rosuvastatin 5 mg Tablet
5 mg PO DAILY
bupropion HCl 300 mg Tablet Extended Release 24 Hr
300 mg PO DAILY
magnesium glycinate 100 mg magnesium Capsule
400 mg PO HS
famotidine 20 mg Tablet
20 mg PO HS
oxycodone 5 mg tablet
5 - 10 mg PO Q4HPRN PRN (Reason: moderate to severe pain) Qty: 15 0RF
Referrals:
Limberaaries,Devorah, DO [Family Provider] -
Diana Epps MD [Active] -
Activity Restrictions/Additional Instructions:
As discussed you may stop amoxicillin and start cefdinir. You were given the first dose here in the ER. This prescription was sent to pharmacy. Take later today. This medication is to be taken approximately every 12 hours/twice a day. You may
continue steroids.
Closely follow-up with ENT and return if any worsening of symptoms including if increased pain fever chills or any further concerns.
Interventions
Interventions:
*Risk Screen - Suicide Last Done: 10/09/24 09:04
*General Assessment Last Done: 10/09/24 11:15
*Neglect/Abuse Screening Last Done: 10/09/24 09:04
*ED- Fall Risk Assessment Last Done: 10/09/24 11:15
*ED COVID-19 Vaccine History Last Done: 10/09/24 11:15
Discharge Date and Time
Print Language: BRITISH
[2024-10-09 10:54] LABS: % Basophils 0.8 % (0-2); % Eosinophils 0.5 % (0-6); % Immature Granulocytes 1.2 % (0-0.5); % Monocytes 5.7 % (1.7-9.3); % Neutrophils 73.8 % (42.2-75.2); Absolute Basophils 0.1 10^3/uL (0-0.2); Absolute Eosinophils 0.1 10^3/uL (0-0.7); Absolute Immature Granulocytes 0.2 10^3/uL (0-0.05); Absolute Neutrophils 12.5 10^3/uL (1.4-6.5); Hematocrit 42.9 % (37.0-47.0); Hemoglobin 14.3 g/dL (12.0-16.0); Mean Corp Hgb Conc. 33.3 g/dL (33.0-37.0); Mean Corpuscular Hgb 32.1 pg (27.0-31.0); Mean Corpuscular Volume 96.4 fL (81.0-99.0); Mean Platelet Volume 9.1 fL (7.4-10.4); Nucleated Red Blood Cells % 0 %; Platelet Count 378 10^3/uL (130-400); Red Blood Cell Count 4.45 10^6/uL (4.20-5.40); Red Cell Dist. Width 11.8 % (11.5-14.5); White Blood Cell Count 16.9 10^3/uL (4.8-10.8)
[2024-10-09 11:05] LABS: ALT (SGPT) 17 U/L (0-35); AST (SGOT) 17 U/L (14-36); Alkaline Phosphatase 82 U/L (38-126); Blood Urea Nitrogen 25 mg/dl (7-17); Calcium 9.3 mg/dl (8.4-10.2); Carbon Dioxide 28 mmol/L (22-30); Chloride 104 mmol/L (98-107); Glucose 107 mg/dl (70-99); Potassium 4.2 mmol/L (3.5-5.1); Sodium 143 mmol/L (135-145); Total Bilirubin 0.5 mg/dl (0.2-1.3); Total Protein 6.9 g/dl (6.3-8.2); eGFR > 60.00
[2024-10-09 11:17] LABS: COVID-19 Antigen Negative (Negative)
[2024-10-09] MEDS: OMNICEF 300 MG PO (12:31)
[2024-10-09 12:35] VITALS: BP 123/82
== END 2024-10-09 12:37 | disposition home or self-care (01) ==
LOC: EMR 08:58
PROVIDERS: Nurse Practitioner; EMERGENCY PHYSICIAN Emergency Medicine; FAMILY PHYSICIAN Family Medicine
DX: H66.92 Otitis media, unspecified, left ear (principal); E06.3 Autoimmune thyroiditis; M06.9 Rheumatoid arthritis, unspecified
CPT/HCPCS: 99284; 70450; 80053; 85025; 87502; 87811

== ENCOUNTER 2025-03-20 06:22 | Day surgery (SDC) | payer OTHER, SELFPAY | END 2025-03-20 14:15 | disposition home or self-care (01) | LOC: GI 06:22 | PROVIDERS: ATTENDING PHYSICIAN Internal Medicine Gastroenterology | DX: Z12.11 Encounter for screening for malignant neoplasm of colon (principal); Z86.0100 Personal history of colon polyps, unspecified; K64.8 Other hemorrhoids; K57.30 Diverticulosis of large intestine without perforation or abscess without bleeding; K63.5 Polyp of colon | CPT/HCPCS: 45380; 88305 ==